=== PATIENT | female | born 1950 | race Caucasian/White ===

== ENCOUNTER 2016-09-03 14:47 | Observation (INO) | payer OTHER ==
[2016-09-03 14:03] LABS: BASO % 0.5 % (0-2); EOS % 0.8 % (0-7); EOSINOPHIL ABSOLUTE COUNT 0.1 tho/cmm (0.0-0.7); HCT-HEMATOCRIT 44.1 % (34.0-49.0); HGB-HEMOGLOBIN 15.4 gm/dl (12.0-15.5); IMMATURE GRANULOCYTES ABSOLUTE 0.02 tho/cmm (0-0.03); IMMATURE GRANULOCYTES PERCENT 0.2 % (0-0.3); LYMPH % 34.6 % (20-45); LYMPH ABSOLUTE COUNT 2.9 tho/cmm (0.8-4.5); MCH (MEAN CORPUSCULAR HGB) 32.4 pg (28.0-32.0); MCHC MEAN CORPUSCULAR HGB CONC 34.9 % (32.0-36.0); MCV (MEAN CELL VOLUME) 92.6 fl (82.0-96.0); MEAN PLATELET VOLUME 10.6 cmc (9.4-12.4); MONOCYTE ABSOLUTE COUNT 0.7 tho/cmm (0.0-1.2); NEUTROPHIL ABSOLUTE COUNT 4.6 tho/cmm (1.6-8.0); NEUTROPHIL-AUTOMATED 4.6 tho/cmm (1.6-8.0); NEUTROPHILS % 55.9 % (40-80); PLATELET COUNT 207 tho/cmm (150-450); RED BLOOD COUNT 4.76 mil/cmm (4.00-5.20); RED CELL DISTRIBUTION WIDTH 12.9 % (12.4-16.4); WHITE BLOOD COUNT 8.3 tho/cmm (4.0-10.0)
[2016-09-03 14:22] LABS: BLOOD UREA NITROGEN 13 mg/dl (6-24); CALCIUM 9.1 mg/dl (8.5-10.5); CARBON DIOXIDE-VENOUS 25 mmol/L (22-32); CHLORIDE 108 mmol/l (96-110); CREATININE 0.66 mg/dl (0.50-1.10); GLUCOSE 98 mg/dL (70-110); SODIUM 142 mmol/L (135-145); eGFR VALUE FOR BLACK >90 mL/Min
[2016-09-03 14:28] LABS: ANION GAP 13 mmol/L (0-20); MAGNESIUM 1.9 mg/dl (1.3-2.6); POTASSIUM 3.9 mmol/L (3.7-5.1)
[~2016-09-03 14:47] MED LIST: AGGRENOX 25 MG-1 CAP PO; ANUSOL-HC30 GM RC; ATENOLOL25 MG; BABY ASPIRIN81 MG PO; CALCIUM MAGNES1 EACH PO; CIPRO500 M1 PO; COREG6.25 MG PO; CRESTOR10 MG/TAB PO; CRESTOR20 MG PO; DULCOLAX5 MG PO; ELIQUIS5 M1 PO; FISH OIL 1,2001 CAP PO; FISH OIL 11000 MG/CA PO; FLAGYL500 MG PO; HYDROCODON-ACE1 EAC7 PO; LEVAQUIN750 M1 PO; LEVAQUIN750 MG PO; LISINOPRIL2.5 M1 PO; LISINOPRIL20 MG; MULTIVITAMIN1 TAB; MULTIVITAMINS1 EAC6 PO; NORCO 5-325 TA1 EACH PO; NORCO 5/325 TAB1 TAB PO; PRILOSEC20 M1 PO; PRILOSEC20 MG; PROMETHAZINE-C118 ML PO; TESSALON PERLE100 M1 PO; VICODIN 5/500 T1 TAB PO; VITAMIN D-1000 UNIT/ PO; VITAMIN D5000 UNI1 PO; VYTORIN 10/40 T1 TAB
[2016-09-04] MEDS ORDERED: BETAPACE80 M2 PO (13:19)
== END 2016-09-04 14:13 ==
LOC: EDMED 14:47 → EMR2 15:57 → CAR1 17:07
PROVIDERS: Emergency Medicine; ADMIT Internal Medicine Interventional Cardiology
DX: R07.89 Other chest pain (principal); I48.0 Paroxysmal atrial fibrillation; I10 Essential (primary) hypertension; E78.5 Hyperlipidemia, unspecified; I25.10 Atherosclerotic heart disease of native coronary artery without angina pectoris; Z88.8 Allergy status to other drugs, medicaments and biological substances; Z79.899 Other long term (current) drug therapy; Z95.5 Presence of coronary angioplasty implant and graft; Z98.890 Other specified postprocedural states
CPT/HCPCS: A9500; G0378; J7030